=== PATIENT | male | born 1965 | race Caucasian/White ===

== ENCOUNTER 2017-12-21 09:59 | Day surgery (SDC) | payer BC, OTHER ==
--- NOTE | 2017-12-21 10:02 | EDPHY ---
H & P Time Seen by Provider: 12/21/17 10:01 HPI/ROS: CHIEF COMPLAINT: Exertional chest pain HISTORY OF PRESENT ILLNESS: The patient presents to the ED with 2 episodes of exertional chest pain that occurred after playing hockey. His last episode occurred on Tuesday. The patient has a history of hyperlipidemia and hypertension. The patient has a strong family history of coronary artery disease with 1st degree relatives who had a myocardial infarction in their 30s. The patient is currently asymptomatic. The patient denies asymmetric calf pain or swelling. The patient denies pleuritic chest pain. The patient denies any fever, cough or congestion. REVIEW OF SYSTEMS: A comprehensive 10 point review of systems is otherwise negative aside from elements mentioned in the history of present illness. Source: Patient Exam Limitations: No limitations - Medical/Surgical History Other PMH: APPY - Social History Smoking Status: Never smoked - Physical Exam Exam: General Appearance: Alert, no distress Eyes: Pupils equal and round no pallor or injection ENT, Mouth: Mucous membranes moist Respiratory: There are no retractions, lungs are clear to auscultation Cardiovascular: Regular rate and rhythm Gastrointestinal: Abdomen is soft and nontender, no masses, bowel sounds normal Neurological: 5/5 strength all 4 extremities Skin: Warm and dry, no rashes Musculoskeletal: Neck is supple nontender Extremities: symmetrical, full range of motion, no calf tenderness appreciated , negative Bassem Constitutional: Initial Vital Signs Temperature (C) 36.7 C 12/21/17 10:28 Heart Rate 66 12/21/17 10:28 Respiratory Rate 16 12/21/17 10:28 Blood Pressure 144/94 H 12/21/17 10:28 O2 Sat (%) 98 12/21/17 10:28 O2 Delivery Mode Room Air Allergies/Adverse Reactions: No Known Allergies Allergy (Unverified 11/15/13 07:57) Home Medications: Medication Instructions Recorded oxyCODONE/APAP 5/325 [Percocet 1 - 2 tab PO Q4-6PRN PRN #20 tab 11/15/13 5/325 (*)] Medical Decision Making - Diagnostics EKG Interpretation: EKG: Complete interpretation has been separately recorded in the [employer] archive. Summary impression: Sinus rhythm, rate 70, no ischemic changes ED Course/Re-evaluation: The patient presents the emergency department with exertional chest pain that is occurred twice in the past week after playing hockey. The patient has a history of coronary artery disease in his family with a first-degree relative having an VA in the 30s. The patient last experience exertional chest pain on Tuesday. The patient arrives in the emergency department with an EKG which demonstrates no evidence of acute ischemia. His i-STAT troponin is normal. Consultation is made with the cardiology service. He was evaluated by Dr. Hoover at 11:00 a.m.. The patient will be admitted to the cardiology service and undergo cardiac catheterization given his history of exertional chest pain and strong family history of coronary artery disease. Differential Diagnosis: Differential diagnosis considered includes myocardial infarction, pericarditis, arrhythmia, musculoskeletal strain, esophageal spasm - Data Points Laboratory Results: Laboratory Results 12/21/17 10:15 12/21/17 10:15 12/21/17 12/21/17 12/21/17 10:21 10:15 10:15 WBC 4.87 10^3/uL 10^3/uL (3.80-9.50) RBC 5.67 10^6/uL 10^6/uL (4.40-6.38) Hgb 17.5 g/dL g/dL (13.7-17.5) Hct 49.7 % % (40.0-51.0) MCV 87.7 fL fL (81.5-99.8) MCH 30.9 pg pg (27.9-34.1) MCHC 35.2 g/dL g/dL (32.4-36.7) RDW 12.5 % % (11.5-15.2) Plt Count 222 10^3/uL 10^3/uL (150-400) MPV 9.8 fL fL (8.7-11.7) Neut % (Auto) 59.2 % % (39.3-74.2) Lymph % (Auto) 30.0 % % (15.0-45.0) Bonner % (Auto) 8.0 % % (4.5-13.0) Eos % (Auto) 1.6 % % (0.6-7.6) Baso % (Auto) 1.0 % % (0.3-1.7) Nucleat RBC Rel Count 0.0 % % (0.0-0.2) Absolute Neuts (auto) 2.88 10^3/uL 10^3/uL (1.70-6.50) Absolute Lymphs (auto) 1.46 10^3/uL 10^3/uL (1.00-3.00) Absolute Monos (auto) 0.39 10^3/uL 10^3/uL (0.30-0.80) Absolute Eos (auto) 0.08 10^3/uL 10^3/uL (0.03-0.40) Absolute Basos (auto) 0.05 10^3/uL 10^3/uL (0.02-0.10) Absolute Nucleated RBC 0.00 10^3/uL 10^3/uL (0-0.01) Immature Gran % 0.2 % % (0.0-1.1) Immature Gran # 0.01 10^3/uL 10^3/uL (0.00-0.10) Sodium 139 mEq/L mEq/L (135-145) Potassium 4.5 mEq/L mEq/L (3.3-5.0) Chloride 103 mEq/L mEq/L (97-110) Carbon Dioxide 30 mEq/l mEq/l (22-31) Anion Gap 6 mEq/L L mEq/L (8-16) BUN 14 mg/dL mg/dL (7-23) Creatinine 0.8 mg/dL mg/dL (0.7-1.3) Estimated GFR > 60 Glucose 90 mg/dL mg/dL (70-100) Calcium 9.7 mg/dL mg/dL (8.5-10.4) POC Troponin I 0.00 ng/mL ng/mL (0.00-0.08) Point of Care Test Results: Chemistry 12/21/17 10:21 POC Troponin I 0.00 ng/mL ng/mL (0.00-0.08) Departure - Departure Disposition: [facility] Inpatient Acute Clinical Impression: Chest pain Qualifiers: Chest pain type: other chest pain Qualified Code(s): R07.89 - Other chest pain Condition: Good
--- NOTE | 2017-12-21 10:12 | CPEKG ---
Heart Rate: 70 RR Interval: 857 P-R Interval: 200 QRSD Interval: 88 QT Interval: 412 QTC Interval: 445 P [place]: 52 QRS [place]: 73 T Wave [place]: 44 EKG Severity - NORMAL ECG - EKG Impression: SINUS RHYTHM Electronically Signed By: Amor Aguilar 21-Dec-2017 11:00:14
[2017-12-21 10:25] LABS: PLATELET COUNT 222 10^3/uL (150-400)
[2017-12-21] MEDS ORDERED: LIDOCAINE 1% 300 MG/30 ML SDV ONE (10:57)
[2017-12-21] MEDS ORDERED: fentaNYL 100 MCG/2 ML INJ ONE (10:57)
[2017-12-21] MEDS ORDERED: MIDAZOLAM 2 MG/2 ML VIAL ONE ×2 (10:57→11:49)
[2017-12-21] MEDS ORDERED: VERAPAMIL 5 MG/2 ML VIAL ONE (10:58)
[2017-12-21] MEDS ORDERED: IOPAMIDOL (ISOVUE-370) 150 ML BTL IV ONE ×2 (10:58→12:18)
[2017-12-21] MEDS ORDERED: HEPARIN 10,000 UNIT/10 ML MDV (1,000 UNIT/ML) ONE (10:58)
--- NOTE | 2017-12-21 11:10 | PDHPUP ---
History & Physical Update H&P update statement: This history and physical update is based on an assessment of the patient which was completed after admission or registration (within 24 hours), but prior to the surgery/procedure. H&P update: H&P reviewed & patient examined, no change in patient's condition since H&P completed
--- NOTE | 2017-12-21 11:11 | PDPROPOC ---
Sedation Plan of Care Sedation Plan of Care: vital signs stable, mental status noted, patient educated of risks, benefits, alternatives, patient can tolerate sedation ASA Classification: ASA 3 Planned drugs: fentanyl, midazolam, other Mallampati Score: Class 2 Mallampati Reference Image: Patient passed 3-3-2 rule?: Yes
[2017-12-21] MEDS ORDERED: EPINEPHrine 1 MG/10 ML SYR IVP ONE (11:31)
[2017-12-21] MEDS ORDERED: ATROPINE SULFATE 1 MG/10 ML SYR ONE (11:31)
[2017-12-21] MEDS ORDERED: FAMOTIDINE 20 MG/NACL/50 ML BAG IV ONE (11:32)
--- NOTE | 2017-12-21 12:04 | PDDXCAT ---
Diagnostic Cath Note - . Date: 12/21/17 Windshield Technician: Kiko Indication: other (CCS Class IV angina, hyperlipidemia) - Procedure Access: right groin Procedure: left heart catheterization, coronary angiography, left ventriculogram - Materials Left Heart Cath size: 6F Left Heart Cath materials: standard multipack (JL4, JR4, pigtail) - Findings-Left Heart Catheterization LM: LM is 5mm in size. No flow limiting disease. It bifurcates into a LAD and Circumflex system. LAD: The LAD is 3 mm in size. BLANQUITA III flow. LCX: The circumflex is 3mm in size. BLANQUITA III flow. There is a 20% ostial stenosis of the first OM. RCA: The RCA is 3 mm in size and dominant. There is a shephards hook deformity at the cusp. It is free of flow limting disease. EDP: 24mmHg LVEF: The EF normal at 70%. Wall motion: On the LV gram there is normal LV systolic function. The EF is 70% . There are no resting segmental wall motion abnormalities. The visualized portion of the thoracic aortic valve reveals three sinuses of valsalva most consistent with a trileaflet valve. There is no gradient on pullback across the aortic valve. There is no evidence of stanley dissection or aneurysm formation. Complications: NONE. Estimated blood loss: <50ml Closure method: Angioseal Assessment: The patient dose not have evidence of flow limiting obstruction, dissection, or thrombus of his coronaries. A reason for the patient's angina is not identified on the basis of this study. The patient does have evidence of a non flow limiting plaque of the first obtuse marginal. Plan: The patient has non-flow limiting coronary disease that should be treated medically to achieve a non-HDL cholesterol of less than 100 mg/dL. In addition, anti-platelet therapy with ASA is also recommended specifically a dose of 162 mg per day. His blood pressure also needs to be addressed and controlled for a goal systolic pressure of less than 130 mmHg. Yaniv's clinical symptoms of angina could have been related to a pulmonary embolism. We ordered a CTA chest/thorax and d-dimer. Both of these tests were normal. No PE was identified on CTA. Yaniv's clinical symptoms were strongly suggestive of an acute coronary syndrome. I do not have a good explanation for his lack of findings on coronary angiography or CTA of the pulmonary circulation. He also does not have evidence of thoracic aortic aneurysm or dissection. There are reported cases of coronary thrombosis with associated spontaneous lysis, but I would expect some evidence of non laminar flow or "dye streaming" or staining on the coronary angiogram. The other possibility would be coronary vasospasm, but the patient is male and does not smoke. I think it is critical that he avoid strenuous activity of any kind for the next three weeks and that he report promptly to the ED for recurrent symptoms. We may better explain his coronary symptoms with an evaluation while the symptoms are ongoing. Intervention: NONE. Patient Problems: Problems Problem Status Onset Chest pain Acute
[2017-12-21] MEDS ORDERED: IOPAMIDOL (ISOVUE 370) 100 ML BTL IV ONE (12:38)
[2017-12-21 16:18] VITALS: BP 102/74
--- NOTE | 2017-12-21 17:03 | ECHO ---
[email or web address] [address] [address] Main: [phone] Fax: Transthoracic Echocardiogram Name: SHANNAN CAMPBELL MR#: [id number] Study Date: 12/21/2017 Study Time: 01:42 PM Date of : 1965 Age: 52 year(s) Height: 175.3 cm (69 in.) Weight: 74.39 kg (164 lb.) BSA: 1.9 m2 Gender: Male Examination: Echo Indication: Chest Pain Image Quality: Adequate Contrast: Requested by: Duane Hoover BP: 113 mmHg/79 mmHg Heart Rate: Rhythm: Indication: Chest Pain Procedure Staff Half Backer: Eneida Alejo [facility] Reading Physician: Melvin Segura MD Requesting Provider: Conclusions: Normal size left ventricle. Normal global systolic LV function. EF is 61 %. No regional wall motion abnormality. Normal diastolic LV function. Normal RV function. The left atrium is normal in size. The right atrium is normal in size. The pulmonary artery pressure is normal. Normal size ascending aorta measuring 2.8 cm. No pericardial effusion. Measurements: Chambers Valvular Assessment AV/MV Valvular Assessment TV/PV Normal Normal Normal Name Value Range Name Value Range Name Value Range Ao Smita (2D): 3.0 cm (1.4 cm-2.6 AV Vmax: 0.80 m/s (1 m/s-1.7 TR Vmax: 1.74 mm/s ( - ) cm) m/s) TR PGmax: 12 mmHg ( - ) IVSd (2D): 1.1 cm (0.6 cm-1.1 AV maxP mmHg ( - ) syst. PAP: 17 mmHg ( - ) cm) AV meanP mmHg ( - ) PV Vmax: 0.83 m/s (0.6 m/s-0.9 LVDd (2D): 4.0 cm (4.2 cm-5.9 JARRETT (VTI): 2.9 cm ( - ) m/s) cm) MV E Vmax: 0.51 m/s ( - ) PV PGmax: 3 mmHg ( - ) LVDs (2D): 2.6 cm (2.1 cm-4 MV A Vmax: 0.42 m/s ( - ) cm) MV E/A: 1.21 ( - ) LVPWd (2D): 1.0 cm (0.6 cm-1 cm) MV PHT: 0.084 s ( - ) LVOTd 2.1 cm 2.1 cm mm MVA (PHT): 2.6 s ( - ) LVEF (BP): 61 % (>=55 %) RVDd(2D): 3.0 cm (1.9 cm-3.8 cmmm) Patient: SHANNAN CAMPBELL Study Date: 12/21/2017 Page 1 of 2 01:42 PM Continued Measurements: Chambers Valvular Assessment AV/MV Valvular Assessment TV/PV Name Value Name Value Name Value LADs: 2.8 cm MV DecTime: 271 m/s CVP (est.): 5 mmHg LADs Lon.8 cm MV E' Septal: 0.08 m/s LA Area: 13.8 cm2 MV E/E' Septal: 6.40 LA Volume: 36 ml MV E/E' Lateral: 5.70 LA Volume Index: 18.9 ml/m2 Additional Vessels Name Value Ao Ascendin.8 cm Inferior Vena Cava: 1.4 cm Findings: Left Ventricle: Normal size left ventricle. No LV hypertrophy. Normal global systolic LV function. EF is 61 %. No regional wall motion abnormality. Normal diastolic LV function. Right Ventricle: Normal size right ventricle. Normal RV function. Left Atrium: The left atrium is normal in size. Right Atrium: The right atrium is normal in size. Mitral Valve: The mitral valve is normal in appearance and function. Mild mitral valve regurgitation is present. No mitral stenosis is present. Aortic Valve: The aortic valve is tri-leaflet. There is no significant aortic valve regurgitation. No aortic valve stenosis is present. Tricuspid Valve: The tricuspid valve is normal in appearance and function. Mild tricuspid regurgitation is present. The pulmonary artery pressure is normal. Right ventricular systolic pressure measures 17mmHg. Pulmonic Valve: The pulmonic valve is normal in appearance and function. There is no pulmonic regurgitation seen. Aorta: The aorta is normal. Normal size aortic root measuring 3.0 cm. Normal size ascending aorta measuring 2.8 cm. IVC: The IVC is normal sized. Pericardium: No pericardial effusion. No pleural effusion. (No Signature Object) Patient: SHANNAN CAMPBELL Study Date: 12/21/2017 Page 2 of 2 01:42 PM [id number]
--- NOTE | 2017-12-29 08:03 | GDS ---
[f rep st] DISCHARGE SUMMARY ADMISSION DIAGNOSES: 1. Suspected acute coronary syndrome. 2. Chest pain. 3. Family history of cardiovascular illness. DISCHARGE DIAGNOSES: 1. Cardiac catheterization procedure negative for flow-limiting coronary disease. 2. Normal echocardiogram. 3. No evidence of aortic dissection or thoracic aortic aneurysm on the basis of CT angiography. 4. Negative study for pulmonary embolus as well. 5. Acute chest pain syndrome, resolved. HISTORY OF PRESENT ILLNESS: Please see recently dictated H&P. Briefly, Mr. Yaniv Madden noted chest d iscomfort which began while playing hockey which he does at least twice a week. He complained of mavis st discomfort that radiated to his neck and was associated with shortness of breath. That was on the preceding Tuesday prior to his admission. He also had a 2nd episode which was more severe on Tuesday , resulting in nausea and aborted a bout of emesis. While he was skating on Tuesday the pain was alvaro re. Limited his ability to perform activity and he ultimately left the skating rink and went home. He was seen in consultation by Dr. Friedman, who recommended appropriately immediate evaluation for car diac catheterization given the patient's clinical symptoms. I was asked to see the patient in the em ergency department at the request of Dr. Sean Aguilar, who was the emergency department provider. HOSPITAL COURSE: The patient was taken emergently to the cardiac catheterization laboratory and unde rwent cardiac catheterization, demonstrating a normal coronary system without evidence of flow-limiti ng obstruction, dissection, thrombus, or dye streaming. We did not identify a significant flow-limit ing abnormality on the angiography. For that reason, an echocardiogram was obtained as well as a mavis st thorax CTA in order to rule out pulmonary embolus as well as proximal thoracic aneurysm or dissect ion. Those studies were negative for evidence of those specific disorders. The patient remained mavis st pain-free throughout the hospital stay. It was my recommendation that the patient avoid strenuous activity for the next 2 to 3 weeks until it is certain that he has not had a recurrence of the chest pain syndrome. His activity is to be limited by standard wrist arteriotomy precautions. He is to a void lifting anything more than 10 pounds with the affected area extremity for the next 7 to 10 days and again I would like for him to avoid strenuous activity of any kind for the next 2-3 weeks until w e are certain he does not have recurrence of the chest pain syndrome. If he has ongoing or recurrent chest discomfort, pressure or tightness, I think he should report immediately back to the hospital. The patient is to be discharged in good and stable condition without echocardiographic, EKG, or trop onin isoenzyme evidence of acute coronary syndrome. /[id number]/MODL
== END 2017-12-21 16:20 | disposition home or self-care (01) ==
LOC: UNDOADMOB 10:55 → FCATH 10:55 → UNDODISOB 16:20 → FCATH 16:20
PROVIDERS: ATTEND Internal Medicine Cardiovascular Disease
PROC: 4A023N7 Measurement of Cardiac Sampling and Pressure, Left Heart, Percutaneous Approach (ICD-10-PCS; principal; 2017-12-21)
PROC: B211YZZ Fluoroscopy of Multiple Coronary Arteries using Other Contrast (ICD-10-PCS; principal; 2017-12-21)
PROC: B2151ZZ Fluoroscopy of Left Heart using Low Osmolar Contrast (ICD-10-PCS; principal; 2017-12-21)
DX: R07.9 Chest pain, unspecified (principal); Z82.49 Family history of ischemic heart disease and other diseases of the circulatory system; I10 Essential (primary) hypertension; E78.89 Other lipoprotein metabolism disorders
CPT/HCPCS: 84484-PO; J0461; J1200; J1644; J2250; J3010; Q9967

== ENCOUNTER → 2017-12-30 | Outpatient (CLI) | payer BC | LOC: FIMAGING 08:54 | PROVIDERS: ATTEND Internal Medicine | DX: M50.322 Other cervical disc degeneration at C5-C6 level (principal); R06.02 Shortness of breath ==